=== PATIENT | female | born 1990 | race Caucasian/White ===

== ENCOUNTER 2017-08-11 18:46 | Emergency (ER) | payer BC ==
[2017-08-11] MEDS ORDERED: ACETAMINOPHEN 500 MG TABLET PO ONE (18:54)
--- NOTE | 2017-08-11 18:57 | Emergency Department Record ---
History of Present Illness - General Chief Complaint: Ankle/Foot Injury Stated Complaint: INJURY TO RT ANKLE Time Seen by Provider: 08/11/17 18:53 Source: Patient - History of Present Illness Initial Comments: The patient was playing volley ball in the pool when she came down on her right ankle inverting it. She admits to haveing had some alcohol this afternoon. Complaint: Ankle injury Injury: Ankle: Right Type of Injury: Inversion - Related Data Home Medications Medication Instructions Recorded Confirmed Last Taken Escitalopram Oxalate [Lexapro] 20 mg PO DAILY 08/11/17 08/11/17 Unknown Pantoprazole Sodium [Protonix] 40 mg PO DAILY 08/11/17 08/11/17 Unknown Allergies Allergy/AdvReac Type Severity Reaction Status Date / Time cefixime [From Suprax] Allergy swelling Verified 08/11/17 18:55 of throat Penicillins Allergy swelling Verified 08/11/17 18:55 of throat sulfamethoxazole Allergy swelling Verified 08/11/17 18:55 [From Bactrim] of throat trimethoprim [From Bactrim] Allergy swelling Verified 08/11/17 18:55 of throat Review of Systems Reviewed: No additional complaints except as noted below Constitutional: Reports: As per HPI. Denies: Chills, Fever, Malaise, Night sweats, Weakness, Weight change Eyes: Reports: As per HPI. Denies: Eye discharge, Eye pain, Photophobia, Vision change ENT: Reports: As per HPI. Denies: Congestion, Dental pain, Ear pain, Epistaxis , Hearing loss, Throat pain Respiratory: Reports: As per HPI. Denies: Cough, Dyspnea, Hemoptysis, Stridor, Wheezes Cardiovascular: Reports: As per HPI. Denies: Arrhythmia, Chest pain, Dyspnea on exertion, Edema, Murmurs, Orthopnea, Palpitations, Paroxysmal nocturnal dyspnea, Rheumatic Fever, Syncope Endocrine: Reports: As per HPI. Denies: Fatigue, Heat or cold intolerance, Polydipsia, Polyuria Gastrointestinal: Reports: As per HPI. Denies: Abdominal pain, Constipation, Diarrhea, Hematemesis, Hematochezia, Melena, Nausea, Vomiting Genitourinary: Reports: As per HPI. Denies: Abnormal menses, Discharge, Dyspareunia, Dysuria, Frequency, Hematuria, Incontinence, Retention, Urgency Musculoskeletal: Reports: As per HPI. Denies: Arthralgia, Back pain, Gout, Joint swelling, Myalgia, Neck pain Skin: Reports: As per HPI. Denies: Bruising, Change in color, Change in hair/ nails, Lesions, Pruritus, Rash Neurological: Reports: As per HPI. Denies: Abnormal gait, Confusion, Headache, Numbness, Paresthesias, Seizure, Tingling, Tremors, Vertigo, Weakness Psychiatric: Reports: As per HPI. Denies: Anxiety, Auditory hallucinations, Depression, Homicidal thoughts, Suicidal thoughts, Visual hallucinations Hematological/Lymphatic: Reports: As per HPI. Denies: Anemia, Blood Clots, Easy bleeding, Easy bruising, Swollen glands Family Medical History Any Significant Family History?: No Physical Exam - General General Appearance: Alert, Oriented x3, Cooperative, Mild distress (tearful, cooperative, no slurred speech) - Head Head exam: Normal inspection - Eye Eye exam: Normal appearance, PERRL, EOMI Pupils: Normal accommodation - ENT ENT exam: Normal exam, Mucous membranes moist, Normal external ear exam, Normal orophraynx, TM's normal bilaterally Ear exam: Normal external inspection. negative: External canal tenderness Nasal Exam: Normal inspection. negative: Discharge, Sinus tenderness Mouth exam: Normal external inspection, Tongue normal Teeth exam: Normal inspection. negative: Dental caries Throat exam: Normal inspection. negative: Tonsillar erythema, Tonsillar exudate - Neck Neck exam: Normal inspection, Full ROM. negative: Tenderness - Respiratory Respiratory exam: Normal lung sounds bilaterally. negative: Respiratory distress - Cardiovascular Cardiovascular Exam: Normal rhythm, Normal heart sounds, Tachycardia - GI/Abdominal GI/Abdominal exam: Soft, Normal bowel sounds. negative: Tenderness - Rectal Rectal exam: Deferred - exam: Deferred - Extremities Extremities exam: Normal inspection, Full ROM, Normal capillary refill, Tenderness (right lateral malleolus tender with swelling; nontender proximal fibula,base of 5th MT, calcaneus, or rest of foot.). negative: Calf tenderness , Pedal edema - Back Back exam: Reports: Normal inspection, Full ROM. Denies: Muscle spasm, Rash noted, Tenderness - Neurological Neurological exam: Alert, Normal gait, Oriented X3, Reflexes normal - Psychiatric Psychiatric exam: Normal affect, Normal mood - Skin Skin exam: Dry, Intact, Normal color, Warm Course - Reevaluation(s) Reevaluation #1: Patient declined tylenol and is requesting motrin 800 with antacid. She has an IUD and does not get her period. 08/11/17 19:02 Reevaluation #2: Patient informed of preliminary reading of negative fracture, soft tissue swelling consistent with ankle sprain. 08/11/17 19:42 Medical Decision Making - Management Options [facility] Management: No Additional Work-up Planned (PCP follow up next week.) - Data Complexity MDM Data: X-Ray Ordered and/or Reviewed (Right ankle xray: negative for fracture ; STS noted laterally per ED physician.) Disposition Disposition: Discharge Clinical Impression: Right ankle sprain Qualifiers: Encounter type: initial encounter Involved ligament of ankle: other ligament Qualified Code(s): S93.491A - Sprain of other ligament of right ankle, initial encounter Disposition: Home, Self-Care Condition: (1) Good Instructions: Ankle Sprain Exercises (GEN), Ankle Sprain (ED) Additional Instructions: Ice. Elevate. First 48 hours intermittently. Marty wrap with air splint. Use crutches and NO weight bearing 3-5 days. PCP follow up in office. Forms: Patient Portal Access Quality - Quality Measures Quality Measures: N/A - Blood Pressure Screening Does Patient Have Any of the Following: No Blood Pressure Classification: Hypertensive Reading Systolic Measurement: 125 Diastolic Measurement: 90 Screening for High Blood Pressure: < Normal BP, F/U Not Required > [[id number]]
[2017-08-11] MEDS ORDERED: IBUPROFEN 400 MG TABLET PO ONE (19:01)
[2017-08-11] MEDS ORDERED: AL HYDROX/MAG HYDROX 30ML UD PO ONE (19:01)
--- NOTE | 2017-08-13 13:43 | RADIOLOGY REPORT ---
EXAM: RIGHT ANKLE, THREE VIEWS HISTORY: PATIENT HAS RIGHT ANKLE INJURY. TECHNIQUE: Three views of the right ankle are provided without a comparison examination. FINDINGS: There is no radiographic evidence of a fracture or dislocation of the right ankle. No significant soft tissue abnormalities are visualized. The ankle mortise is intact. IMPRESSION: NO RADIOGRAPHIC EVIDENCE OF AN ACUTE PROCESS INVOLVING THE RIGHT ANKLE. JOB NUMBER: [id number] MTDD
== END 2017-08-11 20:09 | disposition home or self-care (01) ==
LOC: ER 18:46
DX: S93.491A Sprain of other ligament of right ankle, initial encounter (principal); Y93.89 Activity, other specified; Y92.34 Swimming pool (public) as the place of occurrence of the external cause
CPT/HCPCS: 29515; 99283